=== PATIENT | male | born 1975 | race Caucasian/White ===

== ENCOUNTER 2020-02-15 08:07 | Emergency (ER) | payer SELFPAY ==
[2020-02-15 08:08] VITALS: BP 160/101; PULSE 79; RESP 20; TEMP 36.6; O2SAT 100; BMI 23.8
--- NOTE | 2020-02-15 08:24 | ED_ITS ---
HPI - Back Pain/Injury General: Chief Complaint: Back Pain/Injury Stated Complaint: back pain Time Seen by Provider: 02/15/20 08:09 Source: patient and family Mode of arrival: wheelchair Limitations: no limitations History of Present Illness: HPI Narrative: Patient is a nice 44-year-old gentleman here for complaints of lower back pain. Patient states he has a longstanding history of lower back pain. He had an MRI performed in 2017 which according to MRI report that was reviewed showed L5-S1 diffuse disc bulge with superimposed large right paracentral broad disc protrusion with slight superior and inferior disc extrusion resulting in severe encroachment on the right S1 nerve root and posterior displacement of right S2 nerve root and moderate bilateral L5 exiting nerve root encroachment Patient states he has been managing with conservative treatments at home including Ibuprofen, Tylenol, and heat. He states during flareups he will often see his primary care provider who prescribes Meloxicam and Prednisone. Patient also occasionally will take a Gabapentin during flareups. Patient states he was seen by his PCP on 02/07 and given these medications. He states they seemed to be working in addition to using heat, however this morning states he coughed and immediately noticed excruciating pain in the same area that he normally experiences pain. He states due to discomfort he has not been able to walk. Patient is urinating normally. He has not had any bowel incontinence. Patient states pain radiates down the posterior aspect of his right lower extremity which has been present since he began having back pain years ago. Patient denies saddle anesthesia. MD elicited complaint: back pain Pertinent past history: prior back pain Timing: constant Severity: severe Similar Symptoms Previously: Yes Location: right lower back Radiation: right upper leg and right leg below the knee Exacerbating factors: movement, walking, coughing/sneezing and lifting Associated symptoms: Deny abdominal pain, chills, fever(s) or urinary urgency Treatments prior to arrival: heat therapy and other medications (meloxicam, prednisone) Work related injury: No Review of Systems General: Reports: 10 or more systems reviewed and unremarkable except in HPI and below Const: Denies: fever(s) or chills Card: Denies: chest pain Resp: Denies: dyspnea GI: Denies: abdominal pain : Denies: flank pain, difficulty urinating, urinary frequency, urinary urgency, urinary hesitancy, urinary dribbling, change in urine stream or urinary incontinence Musc: Reports: back pain and extremity pain; Denies: neck pain, extremity swelling, joint pain or joint swelling Skin/Breast: Denies: rash or new lesions Neuro: Reports: sensory changes (tingling to R LE-chronic); Denies: headache(s), numbness in extremities, weakness in extremities, frequent falls or dizziness PFSH ED PFSH: Social History (System 02/08/20 @ 10:25 by Beverly Fischer) Smoking and tobacco status: former smoker Alcohol intake: never Physical Exam Const: COMMON NORMALS: average body habitus, patient oriented x3, no limitations, healthy appearing, alert and well nourished GENERAL APPEARANCE: cooperative and in distress (appears very uncomfortable due to pain) HENMT: COMMON NORMALS: normocephalic and atraumatic HEAD & SCALP: normocephalic and atraumatic Resp: COMMON NORMALS: normal respiratory effort Back/Pelvis: THORACIC SPINE/UPPER BACK: Yes normal to inspection, Yes thoracic ROM normal, No thoracic spinal tenderness, No paraspinal muscle tenderness and No paraspinal muscle spasm LUMBAR SPINE/LOWER BACK: Yes normal to inspection, No lumbar spinal tenderness, No paraspinal muscle tenderness and No paraspinal muscle spasm SACROILIAC JOINTS: Yes SI joint(s) abnormal (TTP R SI) SI joint details: pain elicited by passive hyperextension of lower extremity Extremity: COMMON NORMALS: normal to inspection, full ROM, capillary refill normal, no clubbing, cyanosis or edema, no calf tenderness and no pedal edema Neuro: COMMON NORMALS: patient oriented x3, moves all extremities, no focal motor deficits and no sensory deficits noted SENSORIUM/ORIENTATION: Yes alert MOTOR EXAM: 5/5 motor strength present throughout Skin: COMMON NORMALS: no rashes or lesions noted GENERAL SKIN EXAM: no rashes or lesions noted Course Vital Signs: Vital signs: Vital Signs Temperature 98 F 02/15/20 08:08 Pulse Rate 79 02/15/20 08:08 Respiratory Rate 15 02/15/20 09:21 Blood Pressure 160/101 02/15/20 08:08 Pulse Oximetry 100 02/15/20 08:08 MDM - Back Pain/Injury MDM Narrative: Medical decision making narrative: pt has no acute neurological deficits here to warrant emergent imaging; he does have pretty significant findings on his MRI back in 2017; he has done a good job managing conservatively at home until this point; he feels better with medications here and is ambulating within the ED w/o assistance; he is agreeable to neurosurgery follow up at this time; KATIE has been in and spoken to them regarding this appointment; return to ED precautions given Discharge Plan Discharge Patient Disposition: Home, Self-Care Clinical Impression: Right sacral radiculopathy Condition: Stable Prescriptions: New hydrocodone-acetaminophen 5-325 mg tablet 1 tab PO Q6H PRN (Reason: pain) Qty: 14 RF: 0 No Action prednisone 20 mg tablet 60 mg PO DAILY 9 Days Qty: 18 RF: 0 gabapentin 400 mg Capsule 1,200 mg PO DAILY RF: 0 cyclobenzaprine 10 mg tablet 10 mg PO TID PRN (Reason: Muscle Spasm) RF: 0 Mobic 15 mg tablet 15 mg PO DAILY RF: 0 Discharge Orders: Discharge Order (Routine); Ordered 02/15/20 Ordered By: Ya Evangelista Referrals: Umu Alvarado DO [Primary Care Provider] - Patient Instructions: Hydrocodone/Acetaminophen (By mouth), Sciatica (ED) Activity Restrictions/Additional Instructions: Continue taking steroids and Mobic as prescribed. May continue to use heat as needed. Case management has spoken to you about neurosurgery follow up. They may elect to obtain further imaging and speak to you about surgical and non-surgical options regarding your back pain. Hope you get to feeling better soon. Coding Level of Care Code ED Snow Removal/Plowing for Jerry Fwd Exam Detailed
[2020-02-15] MEDS: ketorolac 60 mg/2 mL INJ IM (08:51)
[2020-02-15] MEDS: dexamethasone 10 mg/mL INJ 8 MG IM (08:51)
[2020-02-15] MEDS: diazePAM 5 mg Tablet PO (08:52)
[2020-02-15 09:21] VITALS: RESP 15
[2020-02-15] MEDS: morphine 4 mg/mL SDV 1 mL IM (09:21)
--- NOTE | 2020-02-15 09:23 | PC.NURSE ---
Read and agree with assessment.
[2020-02-15 09:59] VITALS: BP 138/90; PULSE 70; RESP 16; O2SAT 98
--- NOTE | 2020-02-15 16:00 | DCPLANNER ---
manager ui was asked to schedule a follow up appointment for patient with Dr. Tenorio. manager ui called [facility], spoke with Suni, gave clinic patients information. manager ui was told that patients information would be printed and given to Ashwin for review. Clinic will call director of casework and patient with appointment information.
--- NOTE | 2020-02-18 08:36 | DCPLANNER ---
Ashwin from Dr. Ann office called geriatric case manager with appointment information. microsoft dynamics manager architect was told that a follow up appointment was scheduled for Saturday, February 22, 2020 at 9:00 with Trupti Henry. Clinic will call patient with appointment information.
--- NOTE | 2020-02-26 12:56 | DCPLANNER ---
Patient did attend appointment scheduled for 02.22.20 with Trupti.
== END 2020-02-15 10:00 | disposition home or self-care (01) ==
PROVIDERS: Emergency Provider Physician Assistant; Family Provider Family Medicine; PCP Family Medicine
DX: M54.18 Radiculopathy, sacral and sacrococcygeal region (principal); Z87.891 Personal history of nicotine dependence
CPT/HCPCS: 12345; 96372; 99281; 99283; J1100; J1885; J2270

== ENCOUNTER 2020-03-07 09:54 | Outpatient (CLI) | payer SELFPAY ==
--- NOTE | 2020-03-07 10:15 | MR_ITS ---
WS: [id number] MRI LUMBAR SPINE NONCONTRAST HISTORY: M51.17 Intervertebral disc disorders with radiculopathy, ... COMPARISON: 10/30/2016 TECHNIQUE: Sagittal and axial multisequence imaging is submitted. Lumbarization of S1. Mild straightening with reversal normal cervical spine centered at C5. Similar t o prior studies. Slight straightening of the normal lumbar lordosis. Moderate disc space narrowing and desiccation at L5-S1. Similar to the prior study. No marrow edema o r fracture. Conus terminates normally at L1. L1-L2: Normal. L2-L3: Normal. L3-L4: Normal. L4-L5: Mild facet joint arthritis on the RIGHT. No stenosis. L5-S1: Large disc protrusion extends cephalad and caudad from the disc space. There is significant de formity on the thecal sac with displacement of the nerve roots posteriorly and to the LEFT. Suspect t here is probably an extruded disc fragment posterior to the mid L5 vertebral body. There is significa nt mass effect on the RIGHT L5 and S1 nerve roots. Extruded disc extends into the RIGHT subarticular recess. Significant central stenosis with mild LEFT foraminal stenosis. MR/MR lumbar spine wo con* [id number] IMPRESSION: 1. Large RIGHT paracentral disc extrusion at L5-S1 extends above and below the disc space. Significant mass effect upon the thecal sac with displacement and extension into the subarticular recess. Additional disc fragment suspected post erior to L5. Extruded disc has progressed since 2017 with increasing mass effec t and stenosis. 2. Mild LEFT foraminal stenosis at L5-S1.
--- NOTE | 2020-03-07 11:30 | XR_ITS ---
WS: [id number] LATERAL LUMBAR SPINE: 3 view. Lateral radiographs are performed in upright neutral, flexion and extension to the patient's toleranc e. HISTORY: Low back pain COMPARISON: 12/25/2016 Normal posterior lumbar alignment. Mild disc space narrowing at L4-5 and L5-S1. No fracture. XR/XR lumbar spine f/e only [id number] IMPRESSION: No lumbar spine instability.
== END 2020-03-07 09:55 | disposition home or self-care (01) ==
LOC: RADWPI 09:58
PROVIDERS: Family Provider Family Medicine; PCP Family Medicine; Visit Provider Licensed Practical Nurse
DX: M51.17 Intervertebral disc disorders with radiculopathy, lumbosacral region (principal); M51.27 Other intervertebral disc displacement, lumbosacral region
CPT/HCPCS: 72120; 72148

== ENCOUNTER → 2020-03-31 13:14 | Outpatient (BNVA) | payer SELFPAY | PROVIDERS: Family Provider Family Medicine; PCP Family Medicine; Referring Provider Licensed Practical Nurse; Visit Provider Anesthesiology Pain Medicine | DX: M51.17 Intervertebral disc disorders with radiculopathy, lumbosacral region (principal); M51.27 Other intervertebral disc displacement, lumbosacral region; M48.07 Spinal stenosis, lumbosacral region; M54.9 Dorsalgia, unspecified | CPT/HCPCS: 99204; 99205 ==

== ENCOUNTER → 2020-04-01 12:34 | Outpatient (BNVA) | payer SELFPAY | PROVIDERS: Family Provider Family Medicine; PCP Family Medicine; Visit Provider Anesthesiology Pain Medicine | DX: M51.17 Intervertebral disc disorders with radiculopathy, lumbosacral region (principal); M51.16 Intervertebral disc disorders with radiculopathy, lumbar region; M54.9 Dorsalgia, unspecified; Z79.891 Long term (current) use of opiate analgesic | CPT/HCPCS: 64483; 64484; J1040; J3490 ==

== ENCOUNTER → 2020-04-15 09:05 | Outpatient (BNVA) | payer SELFPAY | PROVIDERS: Family Provider Family Medicine; PCP Nurse Practitioner Family; Visit Provider Anesthesiology Pain Medicine | DX: M51.17 Intervertebral disc disorders with radiculopathy, lumbosacral region (principal); M54.9 Dorsalgia, unspecified; Z79.891 Long term (current) use of opiate analgesic | CPT/HCPCS: 99212 ==

== ENCOUNTER 2023-07-08 10:22 | Emergency (ER) | payer OTHER, SELFPAY ==
[2023-07-08 10:28] VITALS: BP 138/81; PULSE 73; RESP 16; TEMP 36.5; O2SAT 100; BMI 23.0
--- NOTE | 2023-07-08 10:37 | ECG_ITS ---
[facility] Test Date: 2023-07-08 Pat Name: Nash Rivera Jr Department: Room: Gender: Male Body Worker: : 1975 Requested By: Miguel Esteves Order Number: [id number] Polly MD: Pj Moreira M.D. Measurements Intervals [place] Rate: 58 P: 77 IN: 113 QRS: 72 QRSD: 92 T: 48 QT: 374 QTc: 369 Interpretive Statements SINUS BRADYCARDIA WITH SHORT IN INTERVAL No previous ECG available for comparison Electronically Signed On 07-08-2023 15:14:51 CDT by Pj Moreira M.D. [email or web address] ([email or web address] va medical centerApplikaking's daughters [facility] center [email or web address]/[id number]
[2023-07-08 10:45] VITALS: BP 110/72; PULSE 56; RESP 14; O2SAT 99
--- NOTE | 2023-07-08 10:59 | XRR_ITS ---
PROCEDURE INFORMATION: Exam: XR Chest Exam date and time: 07/08/2023 11:06 AM Age: 47 years old Clinical indication: Pain; Right-sided; Additional info: Chest pain.No history of trauma or recent surgery is provided. TECHNIQUE: Imaging protocol: Radiologic exam of the chest. 1image(s) are provided. Views: 1 view. COMPARISON: No relevant prior studies available. FINDINGS: Lungs: There are some areas of bronchovascular averaging versus granulomatous calcific appearance centrally. There is minimal subsegmental atelectasis versus post inflammatory scarring demonstrated.No lobar consolidation is appreciated. There is some apical scarring along with some minimal bleb type appearance. Pleural spaces: No pneumothorax or significant pleural effusion is appreciated. Heart/Mediastinum: The cardiomediastinal silhouette is within normal. No cardiac decompensation is appreciated. Diaphragm: The hemidiaphragms are symmetric. Bones/joints: Osseous alignment is maintained.No displaced fracture or dislocation is appreciated. There is some rib undulation suggestive of previous injury for example right posteriorly. Consider overall if there is localized point tenderness including at the 4th and 5th levels. There is some mild chronic appearing degeneration about the acromioclavicular junctions. There is some chronic spurring or exostosis about the left glenoid predominantly. There are chronic appearing degenerative changes of the shoulders. Soft tissues: No radiopaque foreign body or subcutaneous emphysema is appreciated. XR/XR chest 1V portable [id number] IMPRESSION: No lobar consolidation is appreciated.No acute cardiopulmonary changes are appreciated.
[2023-07-08 11:10] LABS: Basophils # 0.1 10^3/uL (0.0-0.1); Basophils % 0.6 %; Eosinophils # 0.3 10^3/uL (0.0-0.8); Eosinophils % 2.5 %; Hematocrit 45.1 % (37-53); Lymphocytes # 2.7 10^3/uL (0.8-4.8); Lymphocytes % 21.6 %; Mean Corpuscular HGB Conc 33.5 g/dL (30-55); Mean Corpuscular Hemoglobin 31.8 pg (27-33); Mean Corpuscular Volume 94.9 fl (82-101); Monocytes # 0.7 10^3/uL (0.2-0.9); Monocytes % 5.9 %; Neutrophils # 8.63 10^3/uL (1.8-7.7); Neutrophils % 69.2 %; Nucleated Red Blood Cells % 0 %; Platelet Count 272 10^3/cmm (157-399); Red Blood Count 4.75 10^6/uL (3.85-5.65); Red Cell Distribution Width 13.5 % (12.1-15.1); White Blood Count 12.48 10^3/uL (3.29-11.43)
[2023-07-08] MEDS: aspirin 81 mg Chew Tablet 324 MG PO (11:11)
--- NOTE | 2023-07-08 11:15 | ED_ITS ---
HPI - Chest Pain General: Chief Complaint: Chest Pain Stated Complaint: chest pain Time Seen by Provider: 07/08/23 10:31 Source: patient Mode of arrival: ambulatory History of Present Illness: 47-year-old male presents emergency room complaint of right-sided chest pain is worse when he takes a deep breath worse when he coughs this been ongoing for the last 2 to 3 weeks. He has a chronic baseline productive cough that he states he has had for quite some time since he stopped smoking is little bit of a dull headache he denies any vomiting or diarrhea denies any fever sweats or chills denies any anosmia. He has had a mild dull headache. No association of exacerbation of pain with exertion or relief of pain with rest. 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 Surgical History No pertinent past surgical history Family History Grandfather Diabetes Social History Smoking and tobacco/nicotine status: former use of tobacco/nicotine Alcohol intake: current Substance/Drug Use: current Household members: significant other Marital status: Life Partner Current occupational status: employed Current occupation: [employer], not currently working Physical Exam Const: COMMON NORMALS: no acute distress GENERAL APPEARANCE: cooperative a nd comfortable ORIENTATION/CONSCIOUSNESS: Yes awake, Yes oriented to person, Yes oriented to place and Yes oriented to time HENMT: COMMON NORMALS: normocephalic, atraumatic and hearing grossly normal bilaterally HEAD & SCALP: normocephalic and atraumatic Resp: COMMON NORMALS: normal respiratory effort, No retractions, No use of accessory muscles and clear to auscultation bilaterally AUSCULTATION: clear to auscultation bilaterally Cardio: COMMON NORMALS: regular rate, regular rhythm and No murmurs present (Cardio) RATE: regular rate RHYTHM: regular rhythm GI: COMMON NORMALS: Soft to palpation and No hepatosplenomegaly present A USCULTATION: Yes normoactive bowel sounds PALPATION: Yes Soft to palpation, No Tenderness to palpation present (GI), No Guarding due to palpation present (GI) and Yes No hepatosplenomegaly present Extremity: COMMON NORMALS: normal to inspection, capillary refill normal, no clubbing, cyanosis or edema, no calf tenderness and no pedal edema Neuro: SENSORIUM/ORIENTATION: Yes oriented to person, Yes oriented to place and Yes oriented to time Skin: COMMON NORMALS: no rashes or lesions noted GENERAL SKIN EXAM: no rashes or lesions noted Course Vital Signs: Vital signs: Vital Signs Temperature 97.7 F 07/08/23 10:28 Pulse Rate 56 L 07/08/23 11:45 Respiratory Rate 14 07/08/23 11:45 Blood Pressure 110/72 07/08/23 11:45 Pulse Oximetry 99 07/08/23 11:45 Oxygen Delivery Me thod Room Air 07/08/23 10:45 MDM - Chest Pain Medical Decision Making Patient has had symptoms for several weeks worse when he coughs or takes a deep breath. His chart troponins are negative EKG does not show anything acute chest x-ray is unremarkable discharge patient home placed on a course of doxycycline and prednisone taper. Recheck if not improving or follow-up with primary care. Medical Records I reviewed the patient's medical records. Lab Data I reviewed the patient's lab results. 07/08/23 10:40 07/08/23 10:40 Radiology Impressions Chest X-Ray 07/08/23 10:59 IMPRESSION: No lobar consolidation is appreciated.No acute cardiopulmonary changes are appreciated. Laboratory Results WBC 12.48 10^3/uL (3.29-11.43) H 07/08/23 10:40 RBC 4.75 10^6/uL (3.85-5.65) 07/08/23 10:40 Hgb 15.10 g/dL (11.27-16.99) 07/08/23 10:40 Hct 45.1 % (37-53) 07/08/23 10:40 MCV 94.9 fl (82-101) 07/08/23 10:40 MCH 31.8 pg (27-33) 07/08/23 10:40 MCHC 33.5 g/dL (30-55) 07/08/23 10:40 RDW 13.5 % (12.1-15.1) 07/08/23 10:40 Plt Count 272 10^3/cmm (157-399) 07/08/23 10:40 MPV 10.0 fL (7.4-10.4) 07/08/23 10:40 Neut % (Auto) 69.2 % 07/08/23 10:40 Lymph % (Auto) 21.6 % 07/08/23 10:40 [place] % (Auto) 5.9 % 07/08/23 10:40 Eos % (Auto) 2.5 % 07/08/23 10:40 Baso % (Auto) 0.6 % 07/08/23 10:40 Neut # (Auto) 8.63 10^3/uL (1.8-7.7) H 07/08/23 10:40 Lymph # (Auto) 2.7 10^3/uL (0.8-4.8) 07/08/23 10:40 [place] # (Auto) 0.7 10^3/uL (0.2-0.9) 07/08/23 10:40 Eos # (Auto) 0.3 10^3/uL (0.0-0.8) 07/08/23 10:40 Baso # (Auto) 0.1 10^3/uL (0.0-0.1) 07/08/23 10:40 Nucleated RBC % (auto) 0 % 07/08/23 10:40 Nucleated RBCs # 0.0 /100WBC 07/08/23 10:40 Sodium 143 mmol/L (136-145) 07/08/23 10:40 Potassium 4.8 mmol/L (3.5-5.1) 07/08/23 10:40 Chloride 108 mmol/L (98-107) H 07/08/23 10:40 Carbon Dioxide 27 mmol/L (22-29) 07/08/23 10:40 Anion Gap 12.8 (5-19) 07/08/23 10:40 BUN 9 mg/dL (6-20) 07/08/23 10:40 Creatinine 0.8 mg/dL (0.7-1.2) 07/08/23 10:40 GFR Calculation 103.6 mL/min (90-130) 07/08/23 10:40 Glucose 104 mg/dL (65-115) 07/08/23 10:40 Calculated Osmolality 295 mOsm/kg (285-295) 07/08/23 10:40 Calcium 10.0 mg/dL (8.5-10.5) 07/08/23 10:40 Total Bilirubin 0.4 mg/dL (0.15-1.2) 07/08/23 10:40 AST 17 U/L (0-40) 07/08/23 10:40 ALT 17 U/L (0-41) 07/08/23 10:40 Alkaline Phosphatase 86 U/L (40-130) 07/08/23 10:40 Troponin T Baseline < 6 ng/L (0-15) 07/08/23 10:40 Total Protein 7.0 g/dL (6.6-8.7) 07/08/23 10:40 Albumin 4.8 g/dL (3.5-5.2) 07/08/23 10:40 Globulin 2.2 g/dL (1.3-4.6) 07/08/23 10:40 All radiology interpretation(s) finalized by discharge Discharge Plan Discharge Patient Disposition: Home Clinical Impression: Atypical chest pain, Pleuritic chest pain Condition: Stable Prescriptions: New doxycycline hyclate 100 mg capsule 100 mg PO BID 10 Days Qty: 20 0RF Medrol (Jez) 4 mg tablets,dose pack See Rx Instructions .ROUTE .COMPLEX Qty: 21 0RF Rx Instructions: orally per package directions No Action hydrocodone-acetaminophen 5-325 mg tablet 1 tab PO Q6H 3 Days Qty: 12 0RF prednisone 20 mg tablet 60 mg PO DAILY 9 Days Qty: 18 0RF Rx Instructions: pt to take 60mg for days 1-3, then 40mg days 4-6, then 20mg 7-9 gabapentin 600 mg tablet 600 mg PO TID 30 Days Qty: 90 0RF hydrocodone-acetaminophen 7.5-325 mg tablet 1 tab PO TID PRN (Reason: severe pain) 14 Days Qty: 42 0RF cyclobenzaprine 10 mg tablet See Rx Instructions .ROUTE .COMPLEX Qty: 60 0RF Dose Instruction: TAKE ONE TABLET BY MOUTH THREE TIMES A DAY NEEDED FOR MUSCLE SPASMS Rx Instructions: TAKE ONE TABLET BY MOUTH THREE TIMES A DAY NEEDED FOR MUSCLE SPASMS Mobic 15 mg tablet 15 mg PO DAILY gabapentin 400 mg capsule 400 mg PO TID Discharge Orders: Discharge ED (Routine); Ordered 07/08/23 Ordered By: Miguel Herndon Referrals: Krystin Lynn NP [Primary Care Provider] - Discharge Diet: Usual diet Discharge Activity: Increase activity as tolerated Patient Instructions: Opioid Safety, Pain Management Activity Restrictions/Additional Instructions: Thank you for choosing [facility] for your healthcare needs today. Please realize this is an emergency room and that we are providing you with a medical screening exam and this may not be complete and all inclusive of all the testing and or work up that you may need to determine your ailment or severity of your illness. It is very important that you follow up as instructed or that you return to the Emergency Department should you have concerns or if your condition changes or worsens in any way. Your EKG was normal your cardiac enzymes were normal. Based on your symptoms and your history suspect the pain is pleuritic in nature (related to the lining of the lung. Recommend that you start steroid taper and a course of antibiotics. If symptoms not improve or worsen or change you can either follow- up in the emergency room or with your primary care doctor. Coding Level of Care Code ED Senior Java Architect for Jerry Alexander
[2023-07-08 11:21] LABS: Alanine Aminotransferase 17 U/L (0-41); Albumin Level 4.8 g/dL (3.5-5.2); Alkaline Phosphatase 86 U/L (40-130); Anion Gap 12.8 (5-19); Aspartate Amino Transferase 17 U/L (0-40); Blood Urea Nitrogen 9 mg/dL (6-20); Carbon Dioxide 27 mmol/L (22-29); Chloride 108 mmol/L (98-107); Globulin 2.2 g/dL (1.3-4.6); Glomerular Filtration Rate 103.6 mL/min (90-130); Glucose 104 mg/dL (65-115); Osmolality Calculated 295 mOsm/kg (285-295); Potassium 4.8 mmol/L (3.5-5.1); Sodium 143 mmol/L (136-145); Total Bilirubin 0.4 mg/dL (0.15-1.2)
[2023-07-08 11:23] LABS: Troponin(5th) Baseline < 6 ng/L (0-15)
[2023-07-08 11:45] VITALS: BP 110/72; PULSE 56; RESP 14; O2SAT 99
== END 2023-07-08 11:47 | disposition home or self-care (01) ==
PROVIDERS: Emergency Provider Family Medicine; PCP Nurse Practitioner Family
DX: R07.89 Other chest pain (principal); R09.1 Pleurisy; Z87.891 Personal history of nicotine dependence
CPT/HCPCS: 71045; 80053; 84484; 85025; 93005; 99285